=== PATIENT | male | born 1980 | race Caucasian/White ===

== ENCOUNTER 2017-11-22 23:43 | Emergency (ER) | payer MEDICAID ==
[~2017-11-22] VITALS: Ht 175.3 cm; Wt 70.3 kg
[~2017-11-22 23:43] MED LIST: NAPR220C15 PO
--- NOTE | 2017-11-23 00:10 | NUR ---
Dr Walton at bedside for assessment and evaluation
[2017-11-23] MEDS ORDERED: OXYCODONE/APAP 5-325 MG TABLET PO ONE (00:15)
[2017-11-23] MEDS ORDERED: ONDANSETRON ODT 4 MG TAB.RAPDIS SL ONE (00:15)
[2017-11-23] MEDS ORDERED: AMOXICILLIN-CLAVUL 875-125MG TABLET PO ONE (00:15)
[2017-11-23] MEDS ORDERED: ONDANSETRON ODT 4 MG TAB.RAPDIS ONE (00:17)
[2017-11-23] MEDS ORDERED: AMOXICILLIN-CLAVUL 875-125MG TABLET ONE (00:17)
[2017-11-23] MEDS ORDERED: OXYCODONE/APAP 5-325 MG TABLET ONE (00:18)
--- NOTE | 2017-11-23 00:45 | NUR ---
Jet irrigation and wound care provided as ordered.
--- NOTE | 2017-11-23 00:48 | NUR ---
Patient discharged to home in stable conditon. Written and verbal after care instructions given by MD. Patient verbalizes understanding of instructions, questions answered fully. Left facility accompanied by
[2017-11-23 00:49] VITALS: BP 135/77
== END 2017-11-23 00:51 | disposition home or self-care (01) ==
LOC: ER 23:43
DX: S51.851A Open bite of right forearm, initial encounter (principal); F17.200 Nicotine dependence, unspecified, uncomplicated; Z86.73 Personal history of transient ischemic attack (TIA), and cerebral infarction without residual deficits; W54.0XXA Bitten by dog, initial encounter; Y93.89 Activity, other specified; Y92.89 Other specified places as the place of occurrence of the external cause; Y99.8 Other external cause status
CPT/HCPCS: A4217; A4663; Q0162

== ENCOUNTER 2019-02-25 02:06 | Emergency (ER) | payer MEDICAID ==
[~2019-02-25] VITALS: Ht 175.3 cm; Wt 72.6 kg
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
--- NOTE | 2019-02-25 02:20 | NUR ---
ED NEFF at bedside for MSE.
[2019-02-25] MEDS ORDERED: LIDOCAINE HCL 1% 20 ML VIAL TP ONE (02:45)
--- NOTE | 2019-02-25 02:50 | NUR ---
Radiology at bedside for XR nasal bones.
--- NOTE | 2019-02-25 03:01 | NUR ---
ED NEFF at bedside.
[2019-02-25] MEDS ORDERED: OXYCODONE/APAP 5-325 MG TABLET ONE (03:10)
[2019-02-25] MEDS ORDERED: NEOMY/BACITRA/POLYMYXIN B OINT UD PACKET TP ONE ×2 (03:10→03:15)
[2019-02-25] MEDS ORDERED: OXYCODONE/APAP 5-325 MG TABLET PO ONE (03:15)
--- NOTE | 2019-02-25 03:18 | NUR ---
Patient discharged to home in stable conditon. Written and verbal after care instructions given to patient and patient girlfriend. Both Patient and patient girlfriend verbalizes understanding of instructions. Patient left ER with stable gait. All belongings with patient.
[2019-02-25 03:19] VITALS: BP 112/60
== END 2019-02-25 03:21 | disposition home or self-care (01) ==
LOC: ER 02:12
DX: S02.2XXA Fracture of nasal bones, initial encounter for closed fracture (principal); S01.81XA Laceration without foreign body of other part of head, initial encounter; F17.210 Nicotine dependence, cigarettes, uncomplicated; F12.10 Cannabis abuse, uncomplicated; Z79.1 Long term (current) use of non-steroidal anti-inflammatories (NSAID); V19.9XXA Pedal cyclist (driver) (passenger) injured in unspecified traffic accident, initial encounter; Y93.89 Activity, other specified; Y92.89 Other specified places as the place of occurrence of the external cause; Y99.8 Other external cause status
CPT/HCPCS: 12011; 70160; 99283; J3490; A4663

== ENCOUNTER 2019-02-26 19:48 | Emergency (ER) | payer MEDICAID ==
[~2019-02-26] VITALS: Ht 175.3 cm; Wt 72.6 kg
[2019-02-26] MEDS ORDERED: SULFAMETH/TRIMETH 800/160 MG TABLET PO ONE (20:15)
[2019-02-26] MEDS ORDERED: CEphaleXIN 500 MG CAPSULE PO ONE (20:15)
[2019-02-26] MEDS ORDERED: CEphaleXIN 500 MG CAPSULE ONE (20:21)
[2019-02-26 20:31] VITALS: BP 119/76
== END 2019-02-26 20:31 | disposition home or self-care (01) ==
LOC: ER 19:49
DX: S02.2XXD Fracture of nasal bones, subsequent encounter for fracture with routine healing (principal); S01.21XD Laceration without foreign body of nose, subsequent encounter; F17.210 Nicotine dependence, cigarettes, uncomplicated; F12.10 Cannabis abuse, uncomplicated; Z71.6 Tobacco abuse counseling; Z79.899 Other long term (current) drug therapy; V19.9XXD Pedal cyclist (driver) (passenger) injured in unspecified traffic accident, subsequent encounter
CPT/HCPCS: A4663

== ENCOUNTER 2019-02-27 23:15 | Emergency (ER) | payer MEDICAID ==
[~2019-02-27] VITALS: Ht 175.3 cm; Wt 72.6 kg
[2019-02-27] MEDS ORDERED: CEphaleXIN 500 MG CAPSULE PO ONE (23:45)
[2019-02-27] MEDS ORDERED: NEOMY/BACITRA/POLYMYXIN B OINT UD PACKET TP ONE ×2 (23:45→23:57)
[2019-02-27] MEDS ORDERED: CEphaleXIN 500 MG CAPSULE ONE (23:57)
[2019-02-27] MEDS ORDERED: SULFAMETH/TRIMETH 800/160 MG TABLET ONE (23:58)
[2019-02-28] MEDS ORDERED: SULFAMETH/TRIMETH 800/160 MG TABLET PO ONE
--- NOTE | 2019-02-28 00:55 | NUR ---
Patient discharged to home in stable conditon. Written and verbal after care instructions given. Patient verbalizes understanding of instructions. Patient ambulated with stable gait.
[2019-02-28] MEDS ORDERED: CEphaleXIN 500 MG CAPSULE PO ONE (01:00)
[2019-02-28] MEDS ORDERED: NEOMY/BACITRA/POLYMYXIN B OINT UD PACKET TP ONE (01:00)
== END 2019-02-28 01:01 | disposition home or self-care (01) ==
LOC: ER 23:16
DX: S01.21XD Laceration without foreign body of nose, subsequent encounter (principal); L08.9 Local infection of the skin and subcutaneous tissue, unspecified; F17.210 Nicotine dependence, cigarettes, uncomplicated; Z79.899 Other long term (current) drug therapy; X58.XXXD Exposure to other specified factors, subsequent encounter
CPT/HCPCS: 87070; A4663

== ENCOUNTER 2020-08-15 20:39 | Emergency (ER) | payer MEDICAID ==
[~2020-08-15] VITALS: Ht 172.7 cm; Wt 79.4 kg
--- NOTE | 2020-08-15 20:50 | NUR ---
Patient ambulated with steady gait. A/OX4. Patient appears very twitchy, unable to sit still. Patient denies use of methamphetamines at this time, but reports marijuana use. Patient came for c/o swelling in his penis, patient states he put a band near the base of the shaft and could not get it off. It has been on for approximately 10 hours now. Patient unable to urinate.
[2020-08-15] MEDS ORDERED: MORPHINE SULFATE 4 MG/1 ML DISP.SYRIN IV ONE (21:00)
[2020-08-15] MEDS ORDERED: ONDANSETRON 4 MG/2 ML VIAL IV ONE (21:00)
--- NOTE | 2020-08-15 21:00 | NUR ---
Assisted ERMD Dr. Leiva, with removal of band with success. Patient had almost immediate relief after it was removed.
[2020-08-15] MEDS ORDERED: MORPHINE SULFATE 4 MG/1 ML DISP.SYRIN ONE (21:04)
[2020-08-15] MEDS ORDERED: ONDANSETRON 4 MG/2 ML VIAL ONE (21:04)
[2020-08-15] MEDS ORDERED: HYDROMORPHONE 1 MG/1 ML DISP.SYRIN ONE (21:09)
--- NOTE | 2020-08-15 21:14 | NUR ---
Speaking with Dr Millan for urologist consult.
[2020-08-15] MEDS ORDERED: CEphaleXIN 500 MG CAPSULE PO ONE (21:30)
[2020-08-15] MEDS ORDERED: HYDROMORPHONE 1 MG/1 ML DISP.SYRIN IV ONE (21:30)
[2020-08-15] MEDS ORDERED: CEphaleXIN 500 MG CAPSULE ONE (21:39)
--- NOTE | 2020-08-15 21:41 | NUR ---
Patient discharged to home in stable condition. Written and verbal after care instructions given. Patient verbalizes understanding of instructions. Stressed follow up or return to ER for worsening s/s. Patient is able to ambulate with steady gait. States that his father in law will be picking him up and driving him home. IV removed. Catheter intact and site benign. Pressure and 4x4 gauze applied to site. No bleeding noted.
[2020-08-15 21:44] VITALS: BP 105/53
== END 2020-08-15 21:45 | disposition home or self-care (01) ==
LOC: ER 20:41
DX: S30.842A External constriction of penis, initial encounter (principal); W49.03XA Rubber band causing external constriction, initial encounter; Y93.89 Activity, other specified; Y92.89 Other specified places as the place of occurrence of the external cause; Z82.49 Family history of ischemic heart disease and other diseases of the circulatory system; Z80.9 Family history of malignant neoplasm, unspecified
CPT/HCPCS: 96374; 96375; 99284; J1170; J2270; J2405; A4663

== ENCOUNTER 2020-08-20 18:41 | Emergency (ER) | payer MEDICAID ==
[~2020-08-20] VITALS: Ht 172.7 cm; Wt 79.4 kg
--- NOTE | 2020-08-20 19:02 | NUR ---
PT WAS EVALUATED BY DR BRIONES. PT WAS D/C'd TO HOME. D/C INSTRUCTIONS GIVEN TO THE PT BY DR BRIONES.
[2020-08-20] MEDS ORDERED: IBUPROFEN 600 MG TABLET PO ONE (19:15)
[2020-08-20] MEDS ORDERED: IBUPROFEN 600 MG TABLET ONE (19:17)
[2020-08-20 19:31] VITALS: BP 136/77
== END 2020-08-20 19:31 | disposition home or self-care (01) ==
LOC: ER 18:44
DX: R10.31 Right lower quadrant pain (principal); R10.32 Left lower quadrant pain; T19.4 Foreign body in penis
CPT/HCPCS: A4663

== ENCOUNTER 2021-09-19 19:58 | Emergency (ER) | payer MEDICAID ==
[~2021-09-19] VITALS: Ht 175.3 cm; Wt 70.3 kg
--- NOTE | 2021-09-19 20:25 | NUR ---
AFTER BEING TRIAGED, PATIENT WAS SENT BACK TO WAITING ROOM DUE TO NO BEDS AVAILABLE IN THE ER AT THIS TIME.
--- NOTE | 2021-09-19 22:00 | NUR ---
PLACED IN ROOM 4A. DR HARVEY INTO EVAL PATIENT.
[2021-09-19] MEDS ORDERED: OFLO5DRO5 LEFT EAR (22:22)
[2021-09-19] MEDS ORDERED: ACET1TAB23 PO (22:24)
[2021-09-19] MEDS: NEOMY/POLYMYX B/HC OTIC SOL 10 ML BOTTLE OT ONE (22:35)
--- NOTE | 2021-09-19 22:36 | NUR ---
Patient discharged to home in stable condition. Written and verbal after care instructions given. Patient verbalizes understanding of instructions. Stressed follow up or return to ER for worsening s/s. Denies JO/dizziness. No SOB or labored breathing. No n/v/d. Steady gait.
[2021-09-19 22:37] VITALS: BP 122/70
[2021-09-19] MEDS ORDERED: NEOMY/POLYMYX B/HC OTIC SOL 10 ML BOTTLE ONE (22:39)
== END 2021-09-19 23:28 | disposition home or self-care (01) ==
LOC: ER 19:58
DX: H60.92 Unspecified otitis externa, left ear (principal); F17.210 Nicotine dependence, cigarettes, uncomplicated
CPT/HCPCS: A4663; J3590

== ENCOUNTER 2022-06-05 16:41 | Emergency (ER) | payer MEDICAID ==
[~2022-06-05] VITALS: Ht 175.3 cm; Wt 72.6 kg
[~2022-06-05 16:41] MED LIST changes: +ACET1TAB23 PO; -NAPR220C15 PO; +OFLO5DRO5 LEFT EAR
[2022-06-05] MEDS ORDERED: NITROGLYCERIN 0.4 MG/TAB BOTTLE SL ONE ×2 (17:15→17:59)
[2022-06-05] MEDS ORDERED: ASPIRIN 81 MG TAB.CHEW PO ONE (17:15)
[2022-06-05] MEDS ORDERED: LIDOCAINE VISCUS 2% 15 ML UDC MM ONE (17:15)
[2022-06-05] MEDS ORDERED: MAG HYDROX/AL HYDROX/SIMETH 30 ML LIQUID UDC PO ONE (17:15)
[2022-06-05 17:24] LABS: HEMATOCRIT 37.8 % (36.7-47.1); MEAN CORPUSCULAR HEMOGLOBIN 29.2 uug (23.8-33.4); MEAN CORPUSCULAR VOLUME 87.7 fL (73.0-96.2); PLATELET COUNT (AUTO) 415 K/uL (152-348)
[2022-06-05 17:42] LABS: CARBON DIOXIDE 27 mmol/L (21-32); CHLORIDE 105 mmol/L (98-107); CREATININE 0.9 mg/dL (0.6-1.3); GLUCOSE 94 mg/dL (74-106); UREA NITROGEN, BLOOD 19 mg/dL (7-18)
[2022-06-05] MEDS ORDERED: LIDOCAINE VISCUS 2% 15 ML UDC ONE (17:59)
[2022-06-05] MEDS ORDERED: ASPIRIN 81 MG TAB.CHEW ONE ×2 (17:59→18:08)
[2022-06-05] MEDS ORDERED: MAG HYDROX/AL HYDROX/SIMETH 30 ML LIQUID UDC ONE (17:59)
[2022-06-05 18:10] VITALS: BP 113/77
--- NOTE | 2022-06-05 18:34 | NUR ---
Nitroglycerine: 1809: CP=5-6/10 arm pain / 113/77 HR-81 (NG#1 administered) 1814: CP=3-4/10 arm pain 02/12 111/61 HR-70 (NG#2 administered) 182: CP=0/10 arm pain 10/15 89/69 HR-73 (3rd NG held) MD hanson
[2022-06-05] MEDS ORDERED: REMEDY ESSENTIAL ZINC PASTE 113 GM TP PRN (19:00)
[2022-06-05] MEDS ORDERED: ONDANSETRON 4 MG/2 ML VIAL IV PRN (19:00)
[2022-06-05] MEDS ORDERED: IV NS 1000 ML 1,000 ML IV PRN (19:00)
[2022-06-05] MEDS ORDERED: ACETAMINOPHEN 325 MG TABLET PO PRN (19:00)
[2022-06-05] MEDS ORDERED: ACETAMINOPHEN/CODEINE 300-30 MG TABLET PO PRN (19:00)
[2022-06-05] MEDS ORDERED: NITROGLYCERIN 0.4 MG/TAB BOTTLE SL PRN (19:00)
[2022-06-05] MEDS ORDERED: MAGNESIUM HYDROXIDE 30 ML LIQUID UDC PO PRN (19:00)
--- NOTE | 2022-06-05 19:29 | NUR ---
pt states he wants to go home and does not want to be admitted to the hospital. the pt's is also at the bedside. this is informed to the er md.
--- NOTE | 2022-06-05 20:20 | NUR ---
pt wants to leave [facility], pt is admitted to [facility]. Dr. Simth requested to call [facility] to inform her the pt wants to leave.
--- NOTE | 2022-06-05 20:24 | NUR ---
pt wants to leave chris Rendon and myself at bedside to confirm showed pt that he is admitted to the hospital and why he states he still wants to leave [facility]. call placed to [facility].
--- NOTE | 2022-06-05 20:28 | NUR ---
Patient does not wish to proceed with medical care recommended by Valencia Dolan NP. Patient given information related to possible complications, up to and including , which could occur as a result of leaving the hospital at this time. Patient verbalizes understanding of risks involved due to leaving against medical advice. Patient has signed AMA form.
--- NOTE | 2022-06-05 20:29 | NUR ---
[facility] called back I informed her that the pt left [facility], that Dr. Smith spoke with the pt and Shilo and myself spoke with him as well.
[2022-06-06] MEDS ORDERED: ASPIRIN 81 MG TAB.CHEW PO SCH (09:00)
[2022-06-07 10:06] LABS: *ANTI-SCLERODERMA-70 AB <0.2 AI (0.0-0.9); *SJOGREN'S ANTI-SS-A <0.2 AI (0.0-0.9); *SJOGREN'S ANTI-SS-B <0.2 AI (0.0-0.9); *SMITH ANTIBODIES <0.2 AI (0.0-0.9); ANTI-DNA(DS) AB, QN <1 IU/mL (0-9)
== END 2022-06-05 20:35 | disposition left against medical advice (07) ==
LOC: ER 16:41
DX: R07.9 Chest pain, unspecified (principal); R79.89 Other specified abnormal findings of blood chemistry; F17.210 Nicotine dependence, cigarettes, uncomplicated; F15.11 Other stimulant abuse, in remission; Z82.49 Family history of ischemic heart disease and other diseases of the circulatory system; Z53.29 Procedure and treatment not carried out because of patient's decision for other reasons
CPT/HCPCS: 36415; 71045; 84484; 85025; 86038; 93005; A4663

== ENCOUNTER 2024-06-21 16:59 | Emergency (ER) | payer MEDICAID, OTHER | END 2024-06-21 17:43 | disposition left against medical advice (07) | LOC: ER 17:00 | DX: M79.603 Pain in arm, unspecified (principal); Z53.21 Procedure and treatment not carried out due to patient leaving prior to being seen by health care provider ==